=== PATIENT | female | born 2005 | race Caucasian/White ===

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

== ENCOUNTER → 2025-04-08 13:03 | Outpatient (REF) | payer OTHER, SELFPAY | LOC: HWRAD 13:03 | PROVIDERS: ATTENDING PHYSICIAN Student in an Organized Health Care Education/Training Program | DX: S80.02XD Contusion of left knee, subsequent encounter (principal) | CPT/HCPCS: 73564 ==

== ENCOUNTER → 2025-04-22 15:53 | Outpatient (REF) | payer OTHER, SELFPAY | LOC: HWRAD 15:53 | PROVIDERS: ATTENDING PHYSICIAN Student in an Organized Health Care Education/Training Program | DX: S99.922D Unspecified injury of left foot, subsequent encounter (principal) | CPT/HCPCS: 73630 ==